=== PATIENT | male | born 1980 | race American Indian/Alaskan Native ===

== ENCOUNTER 2017-03-23 20:09 | Inpatient (IN) | payer SELFPAY ==
[2017-03-23] MEDS ORDERED: ZOFRAN ODT PO ONE (20:48)
[2017-03-23] MEDS ORDERED: ZOFRAN ODT ONE (20:50)
[2017-03-23 21:21] LABS: Basophils % (Auto) 0.7 % (0.0-1.8); Eosinophils % (Auto) 0.1 % (0.0-4.3); Hematocrit 47.5 % (35.5-45.6); Mean Corpuscular HGB Conc 34 % (32-34); Mean Corpuscular Hemoglobin 35 pg (28-32); Mean Corpuscular Volume 102 fl (84-94); Platelet Count 250 K/mm3 (140-440); Red Blood Count 4.63 M/mm3 (3.65-5.03); Red Cell Distribution Width 12.9 % (13.2-15.2); White Blood Count 14.6 K/mm3 (4.5-11.0)
[2017-03-23 21:33] LABS: Alanine Aminotransferase 16 units/L (7-56); Albumin/Globulin Ratio 1.9 %; Alkaline Phosphatase 65 units/L (35-129); Anion Gap 24 mmol/L; BUN/Creatinine Ratio 11; Blood Urea Nitrogen 10 mg/dL (9-20); Calcium 10.5 mg/dL (8.4-10.2); Carbon Dioxide 25 mmol/L (22-30); Chloride 92.9 mmol/L (98-107); Glucose 134 mg/dL (75-100); Lipase 19 units/L (13-60); Potassium 4.3 mmol/L (3.6-5.0); Sodium 138 mmol/L (137-145); Total Protein 7.7 g/dL (6.3-8.2)
[2017-03-24] MEDS ORDERED: DILAUDID IV ONE (09:35)
[2017-03-24] MEDS ORDERED: NACL 0.9% 1000 ML 2,000 ML IV ONE (09:35)
[2017-03-24] MEDS ORDERED: ZOFRAN IV ONE (09:35)
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
[2017-03-24] MEDS ORDERED: LIDOCAINE VISCOUS 2% MM STA (11:32)
[2017-03-24] MEDS ORDERED: XYLOCAINE TOPICAL 4% TP ONE (11:32)
[2017-03-24] MEDS ORDERED: LIDOCAINE VISCOUS 2% ONE (12:47)
--- NOTE | 2017-03-24 14:08 | XRay Report ---
Flat and upright views of the abdomen. Findings: There is a dilated loop of small bowel in the upper abdomen. The colon is not dilated. No free air is seen on the upright view. No evidence of mass or organomegaly is present. Impression: Dilated proximal small bowel. Please refer to CT of the abdomen and pelvis performed on the same date for better delineation of small bowel pathology.
[2017-03-24 14:48] LABS: Bilirubin,Urine NEG (Negative); Blood,Urine NEG (Negative); Ketones,Urine 20 mg/dL (Negative); Leukocyte Esterase,Urine NEG (Negative); Mucus,Urine 3+ /HPF; Nitrite,Urine NEG (Negative); Urobilinogen,Urine < 2.0 mg/dL (<2.0); WBC,Urine < 1.0 /HPF (0.0-6.0)
[2017-03-24] MEDS: DILAUDID IV PRN ×2 (15:02→20:21)
[2017-03-24] MEDS: D5W/0.45% NACL/KCL 20 MEQ 20 MEQ/1,000 ML BAG IV SCH (15:03)
[2017-03-25] MEDS: D5W/0.45% NACL/KCL 20 MEQ 20 MEQ/1,000 ML BAG IV SCH ×3 (00:15→21:15)
[2017-03-25] MEDS: ATIVAN IV SCH ×2 (01:17→23:28)
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
[2017-03-25 06:03] LABS: BUN/Creatinine Ratio 9; Blood Urea Nitrogen 11 mg/dL (9-20); Calcium 9.2 mg/dL (8.4-10.2); Carbon Dioxide 36 mmol/L (22-30); Chloride 98.7 mmol/L (98-107); Glucose 126 mg/dL (75-100); Potassium 4.1 mmol/L (3.6-5.0); Sodium 142 mmol/L (137-145)
[2017-03-25 06:05] LABS: Anion Gap 11 mmol/L
--- NOTE | 2017-03-25 08:05 | XRay Report ---
SUPINE KUB: History: Bowel obstruction. A nasogastric tube has been inserted which terminates in the fundus of the stomach. Slightly prominent loop of small bowel in the epigastric region has decreased in caliber by 50%. The remainder of the bowel gas pattern is within normal limits. No masses or organomegaly is identified and there is no gross evidence of free air or fluid. No significant soft tissue calcifications are noted. IMPRESSION: Nasogastric tube placement. Mild improvement in dilated small bowel.
[2017-03-25] MEDS: DILAUDID IV PRN ×4 (11:16→21:14)
--- NOTE | 2017-03-25 14:39 | Progress Note ---
Subjective Patient Reports: Positive: still having pain, flatus, no bowel movement, nausea Narrative: minimal change in the clinical status nauseated NG abiut 2000 cc sangiunos fluid , will check with UGI and SBSeries ,Pt informed as to that . will ceck , in AM , Objective Vital Signs - 12hr 03/25/17 03/25/17 03/25/17 07:23 09:34 11:42 Temperature 98.9 F 98.7 F Pulse Rate 63 68 Respiratory 18 18 Rate Respiratory 17 Rate [abd pain] Blood Pressure 113/73 114/71 O2 Sat by Pulse 98 96 Oximetry - Labs 03/23/17 20:54 03/25/17 05:05 Diabetes panel 03/25/17 Range/Units 05:05 Sodium 142 (137-145) mmol/L Potassium 4.1 (3.6-5.0) mmol/L Chloride 98.7 (98-107) mmol/L Carbon Dioxide 36 H D (22-30) mmol/L BUN 11 (9-20) mg/dL Creatinine 1.2 (0.8-1.5) mg/dL Glucose 126 H (75-100) mg/dL Calcium 9.2 (8.4-10.2) mg/dL Calcium panel 03/25/17 Range/Units 05:05 Calcium 9.2 (8.4-10.2) mg/dL Pituitary panel 03/25/17 Range/Units 05:05 Sodium 142 (137-145) mmol/L Potassium 4.1 (3.6-5.0) mmol/L Chloride 98.7 (98-107) mmol/L Carbon Dioxide 36 H D (22-30) mmol/L BUN 11 (9-20) mg/dL Creatinine 1.2 (0.8-1.5) mg/dL Glucose 126 H (75-100) mg/dL Calcium 9.2 (8.4-10.2) mg/dL Adrenal panel 03/25/17 Range/Units 05:05 Sodium 142 (137-145) mmol/L Potassium 4.1 (3.6-5.0) mmol/L Chloride 98.7 (98-107) mmol/L Carbon Dioxide 36 H D (22-30) mmol/L BUN 11 (9-20) mg/dL Creatinine 1.2 (0.8-1.5) mg/dL Glucose 126 H (75-100) mg/dL Calcium 9.2 (8.4-10.2) mg/dL
[2017-03-25] MEDS: PEPCID IV SCH ×2 (15:18→21:13)
--- NOTE | 2017-03-25 15:19 | Fluoroscopy Report ---
UPPER GI SERIES: History: Duodenal stenosis. FINDINGS: The patient ingested barium without difficulty. The esophageal contour is normal. There are no ulcerations or filling defects seen in the esophagus. There is normal esophageal motility. There is no hiatal hernia or reflux. The gastric contour and position appear normal. There are no ulcerations or filling defects in the stomach. The duodenal bulb and duodenal sweep appear normal. IMPRESSION: Negative double contrast upper GI examination. No duodenal stenosis is identified.
[2017-03-26] MEDS: DILAUDID IV PRN ×5 (05:55→21:40)
[2017-03-26] MEDS: D5W/0.45% NACL/KCL 20 MEQ 20 MEQ/1,000 ML BAG IV SCH ×2 (08:14→17:34)
[2017-03-26] MEDS: PEPCID IV SCH ×2 (10:18→21:39)
--- NOTE | 2017-03-26 13:30 | Progress Note ---
Subjective Patient Reports: Positive: feels better, still having pain, flatus, no bowel movement Narrative: KUB showed Barium gone , Pt says he had no BM !!!. ambulatory , hungry , will start lquids , Objective Vital Signs - 12hr 03/26/17 03/26/17 04:56 07:35 Temperature 99.1 F 99.1 F Pulse Rate 87 83 Respiratory 18 18 Rate Blood Pressure 118/76 117/72 O2 Sat by Pulse 98 94 Oximetry - Labs 03/23/17 20:54 03/25/17 05:05
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
[2017-03-26] MEDS: ATIVAN IV SCH (23:20)
[2017-03-27] MEDS: D5W/0.45% NACL/KCL 20 MEQ 20 MEQ/1,000 ML BAG IV SCH ×2 (02:28→10:33)
[2017-03-27] MEDS: DILAUDID IV PRN ×3 (02:36→12:59)
[2017-03-27] MEDS ORDERED: MILK OF MAGNESIA PO NR (10:30)
[2017-03-27] MEDS: PEPCID IV SCH (10:33)
[2017-03-27 12:14] VITALS: BP 117/70
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
== END 2017-03-27 14:30 | disposition home or self-care (01) | DRG 390 ==
LOC: ED 20:09 → 3B-SURG 03-24 11:32
PROVIDERS: ADMIT Surgery; ATTEND Surgery
DX: K56.609 Unspecified intestinal obstruction, unspecified as to partial versus complete obstruction (principal); F17.200 Nicotine dependence, unspecified, uncomplicated; E87.6 Hypokalemia; D72.829 Elevated white blood cell count, unspecified; K56.7 Ileus, unspecified; Z79.899 Other long term (current) drug therapy; Z72.89 Other problems related to lifestyle
CPT/HCPCS: 36415; 74000; 74020; 74177; 74241; 80048; 80053; 81001; 82140; 83690; 85025; 96374; 96375; 99406; J1170; J2060; J2405; J7030; Q0162; Q9967